=== PATIENT | female | born 1960 | race Caucasian/White ===

== ENCOUNTER → 2017-12-09 | Outpatient (CLI) | payer OTHER ==
[~2017-12-09] MED LIST: ACET-1966 PO; ALB18R INH; IBU800 PO; PER PO; PROGEST; PROGESTERONE; [UNRECOGNIZED DRUG - OTHER]
--- NOTE | 2017-12-09 14:11 | RADIOLOGY IMAGING REPORT ---
FACILITY: [facility] PATIENT NAME: Asya Alfonso : 1960 MR: [id number] V: [id number] EXAM DATE: ORDERING PHYSICIAN: RANDI WALDROP TECHNOLOGIST: Location: [facility] [place] Patient: Asya Alfonso : 1960 Visit/Account:[id number] Date of Sevice: 12/09/2017 DEXA Scan HISTORY: Menopausal screening. COMPARISON: None available. LUMBAR SPINE: The bone mineral density (BMD) measured from L1-L4 correlates with a Z-score of 0.4 and a T-score of -0.5 which is normal as defined by the World Health Organization. The corresponding risk of fracture in the lumbar spine is not increased compared with a young adult reference population. HIP: Bone mineral density (BMD) measured in the left femoral neck region correlates with a Z-score of 0.3 and a T-score of -0.7 which is normal as defined by the World Health Organization. The corresponding risk of fracture in the hip is not increased compared with a young adult reference population. Bone mineral density (BMD) measured in the left Femoral Neck region measures 0.940 g/cm2. IMPRESSION: 1. Lumbar spine: Normal. 2. Left femoral neck: Normal. 3. Left Femoral Neck: Bone Mineral Density is 0.940 g/cm2 The next DEXA scan of this patient should include the following sites: L1-L4 and left hip. FRAX? WHO Fracture Risk Assessment Tool link: <http://www.shef.ac.uk/FRAX/tool.jsp?locationValue=9> PLEASE NOTE: 1) The World Health Organization defines low BMD as follows: T-score Normal > -1 Osteopenia < -1 and > -2.5 Osteoporosis < -2.5 without fractures Established osteoporosis < -2.5 with fractures 2) In general, you may wish to consider: Diagnosis Treatment Follow-up DEXA Normal BMD Prevention 2-3 years Osteopenia Prevention/therapy 1-2 years Osteoporosis Therapy Yearly 3) Fracture risk estimated from the T-score is more accurate for vertebral fractures (often spontane ous) than for hip fractures. Report Dictated By: Obed De Leon MD at 12/09/2017 2:05 PM Report E-Signed By: Obed De Leon MD at 12/09/2017 2:08 PM WSN:[email or web address]
--- NOTE | 2017-12-13 10:49 | RADIOLOGY IMAGING REPORT ---
FACILITY: [facility] PATIENT NAME: JUSTINE MERAZ : [id number] MR: [id number] V: [id number] EXAM DATE: [id number] ORDERING PHYSICIAN: RANDI WALDROP TECHNOLOGIST: Nichole Houston PROCEDURE:BILATERAL DIGITAL SCREENING MAMMOGRAM WITH CAD ASSISTED INTERPRETATION & 3D TOMOSYNTHESIS COMPARISON:Prior mammograms 02/14/14, 02/14/12. INDICATIONS:SCREENING FINDINGS: Moderate amount fibroglandular tissue is seen throughout the breasts. The parenchymal pattern has remained stable allowing for difference in mammographic technique & patient positioning. There is no evidence of malignant appearing mass, malignant appearing calcifications or other secondary sign of malignancy in either breast. DIAGNOSTIC CATEGORY 1--NEGATIVE. RECOMMENDATIONS: ROUTINE MAMMOGRAM AND CLINICAL EVALUATION. IMPRESSION: BIRADS 1: Negative. No significant abnormality is seen. Dictated by: Zehra Xiao M.D. on 12/12/2017 at 17:23 Transcribed by: MOIZ on 12/13/2017 at 8:08 Approved by: Zehra Xiao M.D. on 12/13/2017 at 10:48 [facility]
== END ==
LOC: MAMO 01:59
PROVIDERS: ATTEND Family Medicine
DX: Z12.31 Encounter for screening mammogram for malignant neoplasm of breast (principal); N95.1 Menopausal and female climacteric states
CPT/HCPCS: 77063; 77067; 77080